=== PATIENT | female | born 1955 | race Caucasian/White ===

== ENCOUNTER → 2016-12-16 | Outpatient (CLI) | payer BC ==
--- NOTE | 2016-12-16 11:59 | RAD ---
Pelvis with right hip, 2 views, 12/16/2016: History: Lumbago, buttock pain The bony structures are demineralized. No fracture or dislocation is identified. No destructive bony lesion is seen. The hip joints are well-maintained with only minimal marginal spurring. IMPRESSION: No acute pelvic or right hip abnormality is detected.
--- NOTE | 2016-12-16 12:01 | RAD ---
Lumbar spine, 3 views, 12/16/2016: History: Pain The bony structures are demineralized. The lumbar vertebral heights are well-maintained. No fracture or dislocation is identified. There are mild scattered marginal spurs, particularly in the upper lumbar and lower thoracic spine. There is mild disc space narrowing at several levels in the upper lumbar spine. Moderate degenerative changes are present involving the facet joints bilaterally in the lower lumbar spine. IMPRESSION: 1. Mild to moderate multilevel degenerative change. 2. No acute bony abnormality is detected.
== END | disposition home or self-care (01) ==
LOC: DXRADRC 11:41
PROVIDERS: ATTEND Nurse Practitioner Family
DX: M54.5 Low back pain (principal); M79.7 Fibromyalgia
CPT/HCPCS: 72100; 73501

== ENCOUNTER → 2017-07-06 | Outpatient (CLI) | payer BC ==
--- NOTE | 2017-07-06 12:03 | RAD ---
DATE: 07/06/2017 EXAM: MAMMO ELSIE SCREENING BILATERAL HISTORY: Screening COMPARISON: Digitized film screening examination from 09/05/2008 This study was interpreted with the benefit of Computerized Aided Detection (CAD). FINDINGS: Breast Density: SCATTERED The breast parenchyma shows scattered fibroglandular densities. Breast parenchyma level B. No dominant mass or suspect calcifications are seen in either breast IMPRESSION: Benign findings BI-RADS CATEGORY: 2 BENIGN FINDING(S) RECOMMENDED FOLLOW-UP: 12M 12 MONTH FOLLOW-UP PQRS compliance statement: Patient information was entered into a reminder system with a target due date 07/06/2018 for the next mammogram. Mammography is a sensitive method for finding small breast cancers, but it does not detect them all and is not a substitute for careful clinical examination. A negative mammogram does not negate a clinically suspicious finding and should not result in delay in biopsying a clinically suspicious abnormality. "Our facility is accredited by the [employer] Mammography Program."
== END | disposition home or self-care (01) ==
LOC: MAMMO 09:08
PROVIDERS: ATTEND Nurse Practitioner Family
DX: Z12.31 Encounter for screening mammogram for malignant neoplasm of breast (principal)
CPT/HCPCS: 77063; G0202; 77067

== ENCOUNTER → 2020-03-20 | Outpatient (CLI) | payer BC ==
--- NOTE | 2020-03-20 08:20 | RAD ---
Examination: 3 views of the left knee HISTORY: History of left knee pain COMPARISON: None available. Findings: The alignment of the knee joint grossly appears unremarkable. There is no acute fracture or dislocation identified. IMPRESSION: No acute osseous findings. Electronically signed by: Too Kovacs MD (03/20/2020 8:17 AM) [id number]
== END ==
LOC: RAD 07:54
PROVIDERS: ATTEND Physician Assistant Medical
DX: M25.562 Pain in left knee (principal)
CPT/HCPCS: 73562

== ENCOUNTER 2020-05-14 22:03 | Emergency (ER) | payer BC ==
[~2020-05-14] VITALS: Ht 154.9 cm; Wt 90.0 kg
--- NOTE | 2020-05-14 22:23 | PHYS DOC ---
Past History Past Medical History: Hypertension Adult General HPI HPI Patient is a 64-year-old female who presents for dyspnea and shortness of breath. Onset was reported 24 hours ago and worsening. Patient reports feelings of a "gas bubble" in her substernal chest area that is nonradiating. Denies any overt pain, admits difficulty with inspiration, no productive cough. Patient also reports feelings of " a charley horse" in right lower extremity, denies any increased circumference versus contralateral leg or observed edema. Patient reports past medical history of obesity and hypertension only. She reports recent left meniscal surgery performed May 04 and since that time, has been more sedentary. She does admit that she has been taking 81 mg aspirin daily since the surgery as advised by her surgeon. Review of Systems Review of Systems Fourteen body systems of review of systems have been reviewed. See HPI for pertinent positives and negative responses, other thurston all other systems are negative, non-pertinent or non-contributory Physical Exam Physical Exam Constitutional: Well developed, obese, well nourished, mild distress, non-toxic appearance. HENT: Normocephalic, atraumatic, bilateral external ears normal, oropharynx moist, no oral exudates, nose normal. Eyes: PERRLA, EOMI, conjunctiva normal, no discharge. Neck: Normal range of motion, no tenderness, supple, no stridor. Cardiovascular: Heart rate regular, sinus rhythm, no murmurs rubs or gallops Lungs & Thorax: Decreased breath sounds bilaterally secondary to body habitus, diminished breath sounds of right lower lobe Abdomen: Bowel sounds normal, soft, no tenderness, no masses, no pulsatile masses. Nonsurgical abdomen, no peritoneal signs Skin: Warm, dry, no erythema, no rash. Back: No tenderness, no CVA tenderness. Extremities: Appropriate tenderness status post meniscal repair of left knee with no other palpable or observed abnormalities, no cyanosis, no clubbing, ROM intact, no edema. Negative Homans sign bilaterally Neurologic: Alert and oriented X 3, grossly normal motor & sensory function, no focal deficits noted. Psychologic: Affect normal, judgement normal, mood normal. Current Patient Data Vital Signs Vital Signs Date Time Temp Pulse Resp B/P (MAP) Pulse Ox O2 Delivery O2 Flow Rate FiO2 05/14/20 23:00 88 127/84 05/14/20 22:03 97.8 95 24 152/79 (103) 97 Room Air Lab Results Laboratory Tests Test 05/14/20 22:21 White Blood Count 10.0 x10^3/uL Red Blood Count 3.85 x10^6/uL Hemoglobin 12.0 g/dL Hematocrit 36.3 % Mean Corpuscular Volume 94 fL Mean Corpuscular Hemoglobin 31 pg Mean Corpuscular Hemoglobin Concent 33 g/dL Red Cell Distribution Width 13.6 % Platelet Count 255 x10^3/uL Neutrophils (%) (Auto) 70 % Lymphocytes (%) (Auto) 17 % Monocytes (%) (Auto) 12 % Eosinophils (%) (Auto) 1 % Basophils (%) (Auto) 0 % Neutrophils # (Auto) 7.0 x10^3uL Lymphocytes # (Auto) 1.7 x10^3/uL Monocytes # (Auto) 1.2 x10^3/uL Eosinophils # (Auto) 0.1 x10^3/uL Basophils # (Auto) 0.0 x10^3/uL Sodium Level 140 mmol/L Potassium Level 3.5 mmol/L Chloride Level 102 mmol/L Carbon Dioxide Level 27 mmol/L Anion Gap 11 Blood Urea Nitrogen 25 mg/dL Creatinine 1.1 mg/dL Estimated GFR (Cockcroft-Gault) 50.3 BUN/Creatinine Ratio 23 Glucose Level 111 mg/dL Calcium Level 9.3 mg/dL Total Bilirubin 0.8 mg/dL Aspartate Amino Transf (AST/SGOT) 14 U/L Alanine Aminotransferase (ALT/SGPT) 14 U/L Alkaline Phosphatase 77 U/L Troponin I Quantitative < 0.017 ng/mL CP-Obq-N-Type Natriuretic Peptide 113 pg/mL Total Protein 7.6 g/dL Albumin 2.9 g/dL Albumin/Globulin Ratio 0.6 Lipase 79 U/L Current Medications Medications (Trade) Dose Ordered Sig/Adams Route PRN Reason Start Time Stop Time Status Last Admin Dose Admin Aspirin (Kelsey Aspirin) 162 mg 1X ONCE PO 05/14/20 22:45 05/14/20 22:46 DC 05/14/20 23:00 Nitroglycerin (Nitrostat) 0.4 mg PRN Q5MIN PRN SL CHEST PAIN 05/14/20 22:45 05/14/20 23:00 Iohexol (Omnipaque 350 Mg/ml) 100 ml 1X ONCE IV 05/14/20 23:00 05/14/20 23:01 DC 05/14/20 23:14 Info (Do NOT chart on this entry -- for MONITORING) 1 each PRN DAILY PRN MC SEE COMMENTS 05/14/20 23:00 05/16/20 22:59 EKG EKG EKG ordered and interpreted by myself at 2221 hrs. as sinus rhythm at 93 bpm, unremarkable intervals, left axis deviation, no fascicular blocks, x1 observed PVC otherwise no acute ischemic findings, no STEMI Radiology/Procedures Radiology/Procedures PROCEDURE: CHEST AP ONLY CHEST AP ONLY History: Reason: cp / Spl. Instructions: / History: Comparison: None. Findings: Low lung volumes. Small right pleural effusion. Patchy right basilar opacity. No pneumothorax. Impression: 1. Small right pleural effusion with adjacent opacity, may represent atelectasis or consolidation. Electronically signed by: Farshad Ramírez DO (05/14/2020 11:02 PM) C-TETE PROCEDURE: CT ANGIOGRAPHY CHEST Exam: CT of chest with contrast INDICATION: Shortness of breath, right-sided chest pain TECHNIQUE: Sequential axial images through the chest obtained following the administration of 75 mL of Omni 350 IV contrast. Sagittal and coronal reformatted images were reconstructed from the axial data and reviewed. 3-D reformatted images were reconstructed from the axial data and reviewed. Comparisons: Chest x-ray same day FINDINGS: Visualized portions of the thyroid are unremarkable. No enlarged mediastinal lymph nodes are identified. Heart size is at the upper limits of normal. No pericardial effusion. Thoracic aorta has a normal course and caliber. Pulmonary artery is not enlarged. There are extensive bilateral pulmonary emboli extending from the main into the lobar and segmental branches bilaterally. Airways are patent. Patchy areas of ground glass opacity and consolidation predominantly at the right lower lobe. No suspicious lung nodules are identified. There is a trace right pleural effusion. Visualized upper abdomen is unremarkable. No suspicious osseous lesions or acute fractures. IMPRESSION: 1. Extensive bilateral pulmonary emboli extending from the right and left main pulmonary arteries into the lobar and segmental branches bilaterally. 2. There is patchy airspace disease particularly in the right lower lobe which may relate to pulmonary infarct versus infectious process. Exposure: One or more of the following in the visualized dose reduction techniques were utilized for this examination: 1. Automated exposure control 2. Adjustment of the MA and/or KV according to patient size 3. Use of iterative of reconstructive technique Electronically signed by: Tony Garza MD (05/14/2020 11:49 PM) [id number] PROCEDURE: VENOUS LOWER EXTREMITY RIGHT STUDY: US VENOUS LOWER EXTREMITY RIGHT INDICATION: Right leg pain. Swelling. Elevated d-dimer. Known pulmonary emboli. TECHNIQUE: Color-flow and pulsed wave duplex ultrasound with compression of venous structures of the right lower extremity. COMPARISON: None Available. FINDINGS: Duplex ultrasound with compression of the deep venous structures of the right lower extremity from the common femoral vein through the calf. Note thrombus seen within the common femoral vein, superficial femoral vein or popliteal vein. There is thrombus within the peroneal vein as well as in a branch of the posterior tibial vein. Subcutaneous edema becoming apparent below the knee. IMPRESSION: 1. Deep venous thrombosis involving the peroneal vein and a branch of the posterior tibial vein. 2. No thrombus seen from the right common femoral vein through the popliteal vein. At the time of this dictation the ordering team is aware of extensive pulmonary emboli identified on the same day CT chest. Electronically signed by: GRANT KRAUSE MD (05/15/2020 12:31 AM) [id number] Course & Med Decision Making Course & Med Decision Making Airway patent, no overt respiratory distress, vital signs obtained and grossly unremarkable Comprehensive history and physical exam obtained, subsequent laboratory and imaging studies ordered IV access obtained, 162 mg aspirin and times one 0.4 sublingual nitroglycerin administered with improvement in symptoms Preliminary laboratory analysis unremarkable, discussed findings of potential right lower lobe pneumonia, also discussed my elevated suspicion of pulmonary embolism and high risk postoperative patient As seen above, CT angios showed extensive bilateral pulmonary emboli with further observation of patchy airspace disease of right lower lobe ER course discussed with patient. Discussed my concern for her bilateral pulmonary emboli that at present, showing no RV strain. Also discussed concern for right lower lobe pneumonia IV ceftriaxone and azithromycin administered for pneumonia, 1 mg/kg Lovenox administered for pulmonary embolism treatment I recommended transfer to [facility] for higher acuity of care for continued medical management and consultations with cardiology, pulmonology and/or Hemo/onc services as indicated; patient agreeable I discussed case with on-call [facility] hospitalist, Dr. Girard, who agreed the need for transfer for further inpatient management Patient stabilized prior to transport, all questions and concerns addressed, was notified prior to transport via EMS to [facility] Dragon Disclaimer Dragon Disclaimer This electronic medical record was generated, in whole or in part, using a voice recognition dictation system. The HEART Score for CP Pts HEART Score for Chest Pain: HEART Score for Chest Pain Response (Comments) Value History Moderately Suspicious 1 ECG Normal 0 Age >45 - < 65 1 Risk Factors 1 or 2 Risk Factors 1 Troponin < Normal Limit 0 Total 3 Risk Factors: Risk Factors: DM, Current or recent (<one month) smoker, HTN, HLP, family history of CAD, obesity. Risk Scores: Score 0 - 3: 2.5% MACE over next 6 weeks - Discharge Home Score 4 - 6: 20.3% MACE over next 6 weeks - Admit for Clinical Observation Score 7 - 10: 72.7% MACE over next 6 weeks - Early Invasive Strategies PERC Rule for PE PERC Rule for PE Response (Comments) Value Age > 50: Yes 1 HR > 100: No 0 Sa02 on room air <95%: No 0 Unilateral leg swelling: No 0 Hemoptysis: No 0 Recent surgery or trauma: Yes 1 Prior PE or DVT: No 0 Hormone use: No 0 Total 2 Departure Departure: Impression: Primary Impression: Bilateral pulmonary embolism Additional Impressions: Right lower lobe pneumonia DVT (deep venous thrombosis) Disposition: 05 TRANSFER OTHER (To [facility]) Admitting Physician: Other (Dr. Girard at [facility]) Condition: STABLE Referrals: DESTINI WILDER (PCP) Justification of Admission: Justification of Admission: Justification of Admission Dx: Yes (Extensive bilateral pulmonary emboli, pneumonia, RLL DVT) Problem Qualifiers DARIAN HAMPTON DO May 14, 2020 22:23
[2020-05-14 22:44] LABS: BASO % 0 % (0-3); EOS # 0.1 x10^3/uL (0.0-0.7); EOS % 1 % (0-3); HEMATOCRIT 36.3 % (36.0-47.0); LYMPH # 1.7 x10^3/uL (1.0-4.8); LYMPH % 17 % (24-48); MEAN CORPUSCULAR HEMOGLOBIN 31 pg (25-35); MEAN CORPUSCULAR HGB CONC 33 g/dL (31-37); MEAN CORPUSCULAR VOLUME 94 fL (79-100); MONO # 1.2 x10^3/uL (0.0-1.1); MONO % 12 % (0-9); NEUT % 70 % (31-73); PLATELET COUNT 255 x10^3/uL (140-400); RED BLOOD COUNT 3.85 x10^6/uL (3.50-5.40); RED CELL DISTRIBUTION WIDTH 13.6 % (11.5-14.5)
[2020-05-14 22:57] LABS: CALCIUM 9.3 mg/dL (8.5-10.1); CREATININE 1.1 mg/dL (0.6-1.0); GFR 50.3; POTASSIUM 3.5 mmol/L (3.5-5.1)
[2020-05-14] MEDS: ASPIRIN 325 MG TABLET PO ONE (23:00)
[2020-05-14] MEDS ORDERED: CONTRAST GIVEN. MC PRN (23:00)
[2020-05-14] MEDS: NITROGLYCERIN SUBLINGUAL 0.4 MG BOTTLE OF 25. SL PRN (23:00)
[2020-05-14 23:03] LABS: ALBUMIN 2.9 g/dL (3.4-5.0); ALBUMIN/GLOBULIN RATIO 0.6 (1.0-1.7); TOTAL BILIRUBIN 0.8 mg/dL (0.2-1.0); TOTAL PROTEIN 7.6 g/dL (6.4-8.2)
--- NOTE | 2020-05-14 23:05 | RAD ---
CHEST AP ONLY History: Reason: cp / Spl. Instructions: / History: Comparison: None. Findings: Low lung volumes. Small right pleural effusion. Patchy right basilar opacity. No pneumothorax. Impression: 1. Small right pleural effusion with adjacent opacity, may represent atelectasis or consolidation. Electronically signed by: Farshad Ramírez DO (05/14/2020 11:02 PM) [facility]
[2020-05-14] MEDS: IOHEXOL 350 MG/ML 100 ML VIAL. IV ONE (23:14)
--- NOTE | 2020-05-14 23:52 | RAD ---
Exam: CT of chest with contrast INDICATION: Shortness of breath, right-sided chest pain TECHNIQUE: Sequential axial images through the chest obtained following the administration of 75 mL of Omni 350 IV contrast. Sagittal and coronal reformatted images were reconstructed from the axial data and reviewed. 3-D reformatted images were reconstructed from the axial data and reviewed. Comparisons: Chest x-ray same day FINDINGS: Visualized portions of the thyroid are unremarkable. No enlarged mediastinal lymph nodes are identified. Heart size is at the upper limits of normal. No pericardial effusion. Thoracic aorta has a normal course and caliber. Pulmonary artery is not enlarged. There are extensive bilateral pulmonary emboli extending from the main into the lobar and segmental branches bilaterally. Airways are patent. Patchy areas of ground glass opacity and consolidation predominantly at the right lower lobe. No suspicious lung nodules are identified. There is a trace right pleural effusion. Visualized upper abdomen is unremarkable. No suspicious osseous lesions or acute fractures. IMPRESSION: 1. Extensive bilateral pulmonary emboli extending from the right and left main pulmonary arteries into the lobar and segmental branches bilaterally. 2. There is patchy airspace disease particularly in the right lower lobe which may relate to pulmonary infarct versus infectious process. Exposure: One or more of the following in the visualized dose reduction techniques were utilized for this examination: 1. Automated exposure control 2. Adjustment of the MA and/or KV according to patient size 3. Use of iterative of reconstructive technique Electronically signed by: Tony Garza MD (05/14/2020 11:49 PM) [id number]
--- NOTE | 2020-05-15 00:33 | RAD ---
STUDY: US VENOUS LOWER EXTREMITY RIGHT INDICATION: Right leg pain. Swelling. Elevated d-dimer. Known pulmonary emboli. TECHNIQUE: Color-flow and pulsed wave duplex ultrasound with compression of venous structures of the right lower extremity. COMPARISON: None Available. FINDINGS: Duplex ultrasound with compression of the deep venous structures of the right lower extremity from the common femoral vein through the calf. Note thrombus seen within the common femoral vein, superficial femoral vein or popliteal vein. There is thrombus within the peroneal vein as well as in a branch of the posterior tibial vein. Subcutaneous edema becoming apparent below the knee. IMPRESSION: 1. Deep venous thrombosis involving the peroneal vein and a branch of the posterior tibial vein. 2. No thrombus seen from the right common femoral vein through the popliteal vein. At the time of this dictation the ordering team is aware of extensive pulmonary emboli identified on the same day CT chest. Electronically signed by: GRANT KRAUSE MD (05/15/2020 12:31 AM) [id number]
--- NOTE | 2020-05-15 00:49 | EKG ---
[address] [address] Test Date: 2020-05-14 Test Time: 22:15:05 Pat Name: NAHID HUMPHRIES Department: Room: Gender: F Cyber Analyst: : 1955 Requested By: DARIAN HAMPTON Order Number: [id number] Reading MD: Measurements Intervals [place] Rate: 93 P: 37 WA: 148 QRS: -14 QRSD: 84 T: 4 QT: 330 QTc: 413 Interpretive Statements SINUS RHYTHM VENTRICULAR PREMATURE COMPLEX(ES) LEFTWARD AXIS ABNORMAL ECG RI6.02 No previous ECG available for comparison
[2020-05-15] MEDS ORDERED: cefTRIAXone SODIUM 1 GM VIAL ONE (00:56)
[2020-05-15] MEDS ORDERED: IV NORMAL SALINE 50ML 50 ML ONE (00:56)
[2020-05-15] MEDS ORDERED: AZITHROMYCIN 500 MG VIAL. IV ONE (01:24)
[2020-05-15] MEDS ORDERED: IV NORMAL SALINE 250ML 250 ML ONE (01:24)
[2020-05-15] MEDS: AZITHROMYCIN 500 MG in IV NORMAL SALINE 250ML 250 ML IV ONE (01:29)
[2020-05-15] MEDS: ENOXAPARIN ** NOTE DOSE ** SYRINGE SQ ONE (01:29)
[2020-05-15 05:29] VITALS: BP 114/72
== END 2020-05-15 06:24 | disposition short-term general hospital (02) ==
LOC: ER 22:03
DX: J18.1 Lobar pneumonia, unspecified organism (principal); I26.99 Other pulmonary embolism without acute cor pulmonale; I82.401 Acute embolism and thrombosis of unspecified deep veins of right lower extremity; I10 Essential (primary) hypertension; E66.9 Obesity, unspecified; Z68.37 Body mass index [BMI] 37.0-37.9, adult
CPT/HCPCS: 36415; 71045; 71275; 80053; 83690; 83880; 84484; 85025; 93005; 93971; 96365; 96367; 96372; 99285; J0456; J0696; J1650; J7050; Q9967

== ENCOUNTER → 2020-06-22 | Outpatient (CLI) | payer BC ==
[~2020-06-22] MED LIST: IOHEXOL 300 MG/ML 75 ML VIAL. IV ONE; IOHEXOL 350 MG/ML 100 ML VIAL. IV ONE
--- NOTE | 2020-06-22 09:06 | RAD ---
EXAM: Bilateral lower extremity venous Doppler. HISTORY: Bilateral lower extremity pain/swelling. Pulmonary embolism, known deep venous thrombosis. COMPARISON: 05/14/2020. FINDINGS: Grayscale and Doppler analysis of the both lower extremity deep venous systems was performed with graded compression and augmentation. The common femoral, greater saphenous, superficial femoral, popliteal and calf veins were assessed. Previously noted nonocclusive deep venous thrombosis within the right peroneal veins appears decreased since 05/14/2020, but has not completely resolved. No deep venous thrombosis is noted on the left. A small left popliteal cyst measures 5.0 x 1.5 x 3.6 cm. IMPRESSION: 1. Partial resolution of previously noted nonocclusive right peroneal deep venous thrombosis. Electronically signed by: Kasey Bejarano MD (06/22/2020 9:03 AM) [id number]
--- NOTE | 2020-06-22 13:38 | RAD ---
Examination: CT ANGIOGRAPHY CHEST History: Reason: PREVIOUS PE / Spl. Instructions: / History: Comparison/Correlation: 05/14/2020 CTA of the chest Findings: Axial images of the chest were obtained following IV contrast according to pulmonary arteriography protocol. Sagittal and coronal reformatted images were provided. Maximum intensity projection images were provided. Pulmonary arterial vasculature is normal with no definite or significant thromboembolic disease. Thoracic aorta is unremarkable. Small hiatal hernia. Small right pleural effusion is present. Adjacent atelectasis is minimal. Linear atelectasis involving the middle lobe is evident. Minimal lingular linear atelectasis. No pneumothorax. Mild tracheomalacia. Partially visualized upper abdomen is unremarkable. Bony structures are unremarkable. Impression: No definite or significant PE. Previously seen PE has nearly completely resolved. Small right pleural effusion is present in the basilar aspect. Adjacent atelectasis. Hiatal hernia. PQRS Compliance Statement: One or more of the following individualized dose reduction techniques were utilized for this examination: 1. Automated exposure control 2. Adjustment of the mA and/or kV according to patient size 3. Use of iterative reconstruction technique Electronically signed by: Tigre Talley MD (06/22/2020 1:35 PM) [id number]
== END | disposition home or self-care (01) ==
LOC: CT 07:47
PROVIDERS: ATTEND Internal Medicine Critical Care Medicine
DX: K64.5 Perianal venous thrombosis (principal); J90 Pleural effusion, not elsewhere classified; J98.11 Atelectasis; M83.8 Other adult osteomalacia; K44.9 Diaphragmatic hernia without obstruction or gangrene
CPT/HCPCS: 71275; 93970; Q9967

== ENCOUNTER → 2020-10-22 | Outpatient (CLI) | payer BC ==
--- NOTE | 2020-10-22 09:28 | RAD ---
US DPLX VENOUS EXTREMITY LOWER RT 10/22/2020 8:02 AM Clinical Information: DVT follow-up. Comparison: None. Technique: Multiple grayscale, color Doppler, and spectral Doppler sonographic images of the lower ex tremity venous structures were obtained. Findings: The right common femoral, femoral, and popliteal veins exhibit normal compression, respiratory phasic ity, and augmentation. No intraluminal thrombi are identified. Color Doppler flow is demonstrated in the right posterior tibial veins. Greater saphenous veins are patent at the saphenofemoral junction. Impression: 1. No evidence of deep venous thrombosis. Electronically signed by: Juliane Lopez MD (10/22/2020 9:24 AM) [id number]
== END ==
LOC: US 07:40
PROVIDERS: ATTEND Internal Medicine Critical Care Medicine
DX: I82.491 Acute embolism and thrombosis of other specified deep vein of right lower extremity (principal)
CPT/HCPCS: 93971